=== PATIENT | female | born 1960 | race Caucasian/White ===

== ENCOUNTER → 2016-11-15 16:43 | Outpatient (CLI) | payer OTHER ==
[2011-02-23 20:49] VITALS: BMI 25.4
== END | disposition home or self-care (01) ==
LOC: D.MAMMO 11-01 15:00
DX: Z12.31 Encounter for screening mammogram for malignant neoplasm of breast (principal)

== ENCOUNTER 2018-11-12 11:17 | Outpatient (CLI) | payer OTHER ==
[2011-02-23 20:49] VITALS: BMI 25.4
== END 2018-11-12 23:59 | disposition home or self-care (01) ==
LOC: D.MAMMO 11:17
PROVIDERS: ATTEND Family Medicine
DX: Z12.31 Encounter for screening mammogram for malignant neoplasm of breast (principal)

== ENCOUNTER 2020-05-07 11:45 | Outpatient (CLI) | payer OTHER ==
[2011-02-23 20:49] VITALS: BMI 25.4
== END 2020-05-07 23:59 | disposition home or self-care (01) ==
LOC: D.MAMMO 11:45
PROVIDERS: ATTEND Family Medicine
DX: Z12.31 Encounter for screening mammogram for malignant neoplasm of breast (principal)